=== PATIENT | female | born 1990 | race American Indian/Alaskan Native ===

== ENCOUNTER 2018-05-27 08:29 | Outpatient (CLI) | payer SELFPAY ==
--- NOTE | 2018-05-27 09:28 | Ultrasound Report ---
LEFT BREAST ULTRASOUND: 05/27/18 08:29:00 CLINICAL: 27-year-old with a left breast lump felt by her doctor. She denies feeling a lump. COMPARISON: None. FINDINGS: Ultrasound of the left breast(including all four quadrants and the retroareolar area) was performed and demonstrated normal fibroglandular structures with no mass, cyst or shadowing. Ultrasound of the left axilla demonstrated lymph nodes with benign morphology. No suspicious lymph nodes. IMPRESSION: Normal study. BI-RADS 1 - - Negative RECOMMENDATION: Clinical followup.
== END 2018-05-27 08:30 | disposition home or self-care (01) ==
LOC: US 08:29
PROVIDERS: ATTEND Advanced Practice Midwife
DX: N60.02 Solitary cyst of left breast (principal)